=== PATIENT | female | born 1995 | race Two or more races ===

== ENCOUNTER 2024-03-13 21:07 | Emergency (ER) | payer MEDICAID, OTHER ==
[~2024-03-13] VITALS: Ht 154.9 cm; Wt 60.9 kg
[2024-03-13 21:07] VITALS: BP 111/63; PULSE 90; RESP 20; O2SAT 99
[2024-03-13] MEDS ORDERED: ACET500T58 PO (23:54)
== END 2024-03-14 | disposition home or self-care (01) ==
LOC: ER 21:07
DX: S63.612A Unspecified sprain of right middle finger, initial encounter (principal); W50.0XXA Accidental hit or strike by another person, initial encounter; Y93.89 Activity, other specified; Y92.89 Other specified places as the place of occurrence of the external cause; Y99.8 Other external cause status
CPT/HCPCS: 29130; 73140